=== PATIENT | female | born 1935 | race Caucasian/White ===

== ENCOUNTER → 2017-01-06 | Outpatient (CLI) | payer MEDICARE ==
--- NOTE | 2017-01-06 12:34 | XR ---
EXAMINATION TYPE: XR toes LT DATE OF EXAM: 01/06/2017 11:36 AM COMPARISON: NONE HISTORY: wound L great toe, stepped on something several months ago TECHNIQUE: 3 views of the left great toe are submitted. FINDINGS: No evidence for fracture or dislocation. Joint spaces are within normal limits for the daljit ent's age group. No evidence for radiopaque foreign body. No bony destructive process to suggest oste omyelitis. IMPRESSION: Negative study
== END | disposition home or self-care (01) ==
LOC: RADXRMAIN 11:19
PROVIDERS: ATTEND Family Medicine
DX: M79.675 Pain in left toe(s) (principal)

== ENCOUNTER 2017-01-22 12:12 | Emergency (ER) | payer MEDICARE ==
[2017-01-22] MEDS ORDERED: ONDANSETRON 4 MG/2 ML VIAL IVP STA (12:29)
[2017-01-22] MEDS ORDERED: DIPH,PERTUS(ACELL)TETVAC-LF 0.5 ML VIAL IM ONE (12:29)
[2017-01-22] MEDS ORDERED: SODIUM CHLORIDE 0.9% 1,000 ML IV ONE (12:29)
[2017-01-22] MEDS ORDERED: HYDROmorphone 1 MG/ML 1 ML SYRINGE IVP STA (12:29)
--- NOTE | 2017-01-22 12:35 | ED ---
General Adult HPI - General Chief complaint: Fall Stated complaint: Fall Time Seen by Provider: 01/22/17 12:18 Source: patient, EMS, RN notes reviewed, old records reviewed Mode of arrival: EMS Limitations: no limitations - History of Present Illness Initial comments: Chief complaint and history of present illness this is an 82-year-old female reports that while in her kitchen she just turned lost her balance and fell not she complains of pain to the proximal right femur or hip area. The patient arrived via EMS with the injury stabilized as well as possible and minimizing her discomfort. Around emergency room the patient had an IV started she was given 1 mg of Dilaudid. Patient has a 1 cm laceration to her right eyebrow. Denies any loss of consciousness. No seizure activity no nausea no vomiting. No complaint of headache or neck pain. Trauma examination done upon arrival to emergency room. Other than the laceration to the right eyebrow the patient has complaint of pain to the proximal right femur. - Related Data Home Medications Medication Instructions Recorded Confirmed Latanoprost 1 drop BOTH EYES HS 02/02/15 01/22/17 Pantoprazole Sodium [Protonix] 40 mg PO DAILY 02/02/15 01/22/17 Aspirin EC [Ecotrin Low Dose] 81 mg PO DAILY 01/22/17 01/22/17 Atenolol 25 mg PO BID 01/22/17 01/22/17 Atorvastatin [Lipitor] 10 mg PO HS 01/22/17 01/22/17 Calcium Carbonate [Calcium] 1,200 mg PO DAILY 01/22/17 01/22/17 Glucosamine/Chondro Rincon A 3 tab PO QAM 01/22/17 01/22/17 [Glucosamine-Chondroitin Tab] HYDROcodone/APAP 5-325MG [[place] 1 tab PO Q8H PRN 01/22/17 01/22/17 5-325] Timolol 0.5% Ophth Soln [Timoptic 1 drop BOTH EYES DAILY 01/22/17 01/22/17 0.5% Ophth Soln] Tolterodine Tartrate [Detrol LA] 4 mg PO HS 01/22/17 01/22/17 Vitamin E (Dl,Tocopheryl Acet) 400 unit PO DAILY 01/22/17 01/22/17 [Vitamin E] amLODIPine BESYLATE/BENAZEPRIL 1 cap PO DAILY 01/22/17 01/22/17 [Lotrel 5-40 mg Capsule] Previous Rx's Medication Instructions Recorded sitaGLIPtin [Januvia] 50 mg PO DAILY #30 tab 02/05/15 Allergies Allergy/AdvReac Type Severity Reaction Status Date / Time No Known Allergies Allergy Verified 01/22/17 13:50 Review of Systems ROS Statement: Those systems with pertinent positive or pertinent negative responses have been documented in the HPI. Review of systems no headache or visual acuity changes she does have a small laceration to right eyebrow. No neck pain no jaw pain no chest pain shortness breath no upper extremity pain left leg normal. Pain and swelling proximal right femur area. Neurovascular status both feet intact at this time. All systems reviewed. Past medical problems diabetes, hypertension, arthritis, history of blood clots. Patient's surgeries include left hip surgery in 2014 and right hip surgery reportedly in 2002, wide graft done to improve blood flow to the legs. Ex-smoker, occasional alcohol use. Family history breast and stomach cancer. ROS Other: All systems not noted in ROS Statement are negative. Past Medical History Past Medical History: Diabetes Mellitus, Hypertension Additional Past Medical History / Comment(s): arthritis, blood clot after y graft had to go back into OR to remove it History of Any Multi-Drug Resistant Organisms: None Reported Past Surgical History: Hysterectomy, Orthopedic Surgery, Tonsillectomy Additional Past Surgical History / Comment(s): right hip sx 2002, "had no blood going into my legs had a y-graft to get blood to my legs"blood vessels so small poor circulation Past Anesthesia/Blood Transfusion Reactions: No Reported Reaction Past Psychological History: No Psychological Hx Reported Smoking Status: Former smoker Past Alcohol Use History: Occasional Past Drug Use History: None Reported - Past Family History Father Additional Family Medical History / Comment(s): early killed in [place] Mother Additional Family Medical History / Comment(s): breast and stomach cancer Sister(s) Additional Family Medical History / Comment(s): cancer-female Brother(s) Additional Family Medical History / Comment(s): brother heart attack General Exam - General Exam Comments Initial Comments: General: The patient is awake and alert, playing of pain to the proximal right femur area. Vital signs per nurse's note. Eye: Pupils are equal, round and reactive to light, extra-ocular movements are intact ; there is normal conjunctiva bilaterally. No signs of icterus. Ears, nose, mouth and throat: There are moist mucous membranes and no oral lesions. Neck: The neck is supple, there is no tenderness , full range of motion of neck. No complaint of headache. Cardiovascular: There is a regular rate and rhythm. No murmur, rub or gallop is appreciated. Respiratory: Lungs are clear to auscultation, respirations are non-labored, breath sounds are equal. No wheezes, stridor, rales, or rhonchi. Gastrointestinal: Soft, non-distended, non-tender abdomen without masses or organomegaly noted. There is no rebound or guarding present. No CVA tenderness. Bowel sounds are unremarkable. Back: There is no tenderness to palpation in the midline. No back pain. Musculoskeletal: Pain swelling decreased range of motion from proximal right femur. Neurological: CN II-XII intact, There are no obvious motor or sensory deficits. Skin: Skin is warm and dry and no rashes or lesions are noted. Psychiatric: Cooperative, appropriate mood & affect, normal judgment. Limitations: no limitations Course Vital Signs 01/22/17 01/22/17 01/22/17 12:26 13:05 13:10 Temperature 97.2 F L Pulse Rate 60 55 L 53 L Respiratory 20 Rate Blood Pressure 202/87 211/88 O2 Sat by Pulse 96 Oximetry 01/22/17 01/22/17 01/22/17 14:01 14:44 14:47 Temperature Pulse Rate 50 L Respiratory 16 Rate Blood Pressure 176/95 166/62 O2 Sat by Pulse 98 Oximetry Procedures - Procedures Initial comment: Procedure; using sterile technique a 1 1/2 cm laceration was repaired. 1% Xylocaine was used to numb the area cleaned well. Hemostasis obtained. No foreign body noted. Wound edges approximated with 2 simple 5-0 nylon. Sutures to be removed in [address] Doss Medical Decision Making - Medical Decision Making Medical decision-making. Patient's white count is 9.9 hemoglobin 11 hematocrit 35. INR is 1.2 with a potassium 4.5 with BUN 27 creatinine 0.7 and GFR greater than 60. Glucose 144. x-ray of the right hip shows right femoral fracture through the proximal diaphysis of the right femur .as read by Dr. Brown The patient was seen in emergency room by Dr. Currie. Patient be admitted to his service with medical consultation. - Lab Data Result diagrams: 01/22/17 13:09 01/22/17 13:09 Lab Results 01/22/17 01/22/17 01/22/17 Range/Units 13:09 13:09 13:09 WBC 9.9 (3.8-10.6) k/uL RBC 4.15 (3.80-5.40) m/uL Hgb 11.3 L (11.4-16.0) gm/dL Hct 35.4 (34.0-46.0) % MCV 85.3 (80.0-100.0) fL MCH 27.3 (25.0-35.0) pg MCHC 32.0 (31.0-37.0) g/dL RDW 14.0 (11.5-15.5) % Plt Count 175 (150-450) k/uL Neutrophils % 83 % Lymphocytes % 10 % Monocytes % 4 % Eosinophils % 2 % Basophils % 0 % Neutrophils # 8.2 H (1.3-7.7) k/uL Lymphocytes # 1.0 (1.0-4.8) k/uL Monocytes # 0.4 (0-1.0) k/uL Eosinophils # 0.2 (0-0.7) k/uL Basophils # 0.0 (0-0.2) k/uL Hypochromasia Slight PT 11.7 (9.0-12.0) sec INR 1.2 (<1.1) Sodium 137 (137-145) mmol/L Potassium 4.5 (3.5-5.1) mmol/L Chloride 105 (98-107) mmol/L Carbon Dioxide 22 (22-30) mmol/L Anion Gap 10 mmol/L BUN 27 H (7-17) mg/dL Creatinine 0.70 (0.52-1.04) mg/dL Est GFR (MDRD) Af Amer >60 (>60 ml/min/1.73 sqM) Est GFR (MDRD) Non-Af >60 (>60 ml/min/1.73 sqM) Glucose 144 H (74-99) mg/dL Calcium 9.5 (8.4-10.2) mg/dL Total Bilirubin 0.4 (0.2-1.3) mg/dL AST 38 H (14-36) U/L ALT 44 (9-52) U/L Alkaline Phosphatase 86 (38-126) U/L Total Protein 6.3 (6.3-8.2) g/dL Albumin 3.8 (3.5-5.0) g/dL Disposition Clinical Impression: Right femoral shaft fracture Disposition: ADMITTED IP TO THIS HOSP Condition: Serious Referrals: Javi Rodriguez MD [Primary Care Provider] - 1-2 days
--- NOTE | 2017-01-22 13:07 | XR ---
Right hip HISTORY: Trauma and pain Single frontal view of the right hip Correlation to pelvis 02 February 2015 Proximal diaphysis of the right femur shows a fracture with resulting varus deformity, fracture appea rs comminuted. No evident dislocation. Patient's hip prosthesis remains in place. IMPRESSION: Right femoral fracture
--- NOTE | 2017-01-22 13:09 | XR ---
AP pelvis HISTORY: Trauma and pain frontal view of the pelvis submitted on 2 images. Correlation to right hip same date Proximal diaphyseal right femoral fracture is present. Patient shows bilateral hip prosthetic fractur es. No evident dislocation. There are vascular calcifications. IMPRESSION: Proximal right diaphyseal femoral fracture
[2017-01-22] MEDS ORDERED: cloNIDine HCL 0.2 MG TAB PO STA (13:11)
[2017-01-22 13:22] LABS: Basophils % (A) 0 %; CH 27.1; CHCM 31.9; Eosinophils # (A) 0.2 k/uL (0-0.7); Eosinophils % (A) 2 %; HCT 35.4 % (34.0-46.0); HDW 2.91; HGB 11.3 gm/dL (11.4-16.0); Hypochromasia Slight; Luc # (Auto) 0.11; Luc % (Auto) 1; Lymphocytes % (A) 10 %; MCH 27.3 pg (25.0-35.0); MCV 85.3 fL (80.0-100.0); Mean Platelet Volume 9.2; Monocytes # (A) 0.4 k/uL (0-1.0); Monocytes % (A) 4 %; Neutrophils # (A) 8.2 k/uL (1.3-7.7); Neutrophils % (A) 83 %; RBC 4.15 m/uL (3.80-5.40); WBC 9.9 k/uL (3.8-10.6); WBC (Perox) 10.58
[2017-01-22 13:33] LABS: INR 1.2 (<1.1); Prothrombin Time 11.7 sec (9.0-12.0)
[2017-01-22 13:39] LABS: ALT 44 U/L (9-52); AST 38 U/L (14-36); Alkaline Phosphatase 86 U/L (38-126); Anion Gap 10 mmol/L; Blood Urea Nitrogen 27 mg/dL (7-17); Calcium 9.5 mg/dL (8.4-10.2); Carbon Dioxide 22 mmol/L (22-30); Chloride 105 mmol/L (98-107); Glucose 144 mg/dL (74-99); Non-African American GFR(MDRD) >60 (>60 ml/min/1.73 sqM); Potassium 4.5 mmol/L (3.5-5.1); Sodium 137 mmol/L (137-145); Total Bilirubin 0.4 mg/dL (0.2-1.3); Total Protein 6.3 g/dL (6.3-8.2)
--- NOTE | 2017-01-22 14:59 | P.HPOR ---
History of Present Illness H&P Date: 01/22/17 Chief Complaint: Right hip periprosthetic fracture status post fall Patient is very pleasant 82-year-old female who is well-known to us service who is seen and examined in the emergency department for further evaluation for a right periprosthetic femur fracture status post fall today. Patient states she is unsure exactly why she fell. Shee did hit the right side of her head at the time of the fall but denies loss of consciousness. She is known have previously undergone bilateral total hip arthroplasties both performed by Dr. Spring. She states her right total hip was performed in 2002 and her left total hip was performed in 2015. She presented to the emergency department for further evaluation. Since the fall she has had significant pain of the right leg. She is unable to ambulate. She states she takes aspirin 81 mg daily at home. She does have past medical history including diabetes and hyperlipidemia. She denies any ALLERGIES to medication. She states her primary care provider is Dr. Rodriguez. Past Medical History Past Medical History: Diabetes Mellitus, Hypertension Additional Past Medical History / Comment(s): arthritis, blood clot after y graft had to go back into OR to remove it History of Any Multi-Drug Resistant Organisms: None Reported Past Surgical History: Hysterectomy, Orthopedic Surgery, Tonsillectomy Additional Past Surgical History / Comment(s): right hip sx 2002, "had no blood going into my legs had a y-graft to get blood to my legs"blood vessels so small poor circulation Past Anesthesia/Blood Transfusion Reactions: No Reported Reaction Past Psychological History: No Psychological Hx Reported Smoking Status: Former smoker Past Alcohol Use History: Occasional Past Drug Use History: None Reported - Past Family History Father Additional Family Medical History / Comment(s): early killed in [place] [employer] Mother Additional Family Medical History / Comment(s): breast and stomach cancer Sister(s) Additional Family Medical History / Comment(s): cancer-female Brother(s) Additional Family Medical History / Comment(s): brother heart attack Medications and Allergies Home Medications Medication Instructions Recorded Confirmed Type Latanoprost 1 drop BOTH EYES HS 02/02/15 01/22/17 History Pantoprazole Sodium [Protonix] 40 mg PO DAILY 02/02/15 01/22/17 History Aspirin EC [Ecotrin Low Dose] 81 mg PO DAILY 01/22/17 01/22/17 History Atenolol 25 mg PO BID 01/22/17 01/22/17 History Atorvastatin [Lipitor] 10 mg PO HS 01/22/17 01/22/17 History Calcium Carbonate [Calcium] 1,200 mg PO DAILY 01/22/17 01/22/17 History Glucosamine/Chondro Rincon A 3 tab PO QAM 01/22/17 01/22/17 History [Glucosamine-Chondroitin Tab] HYDROcodone/APAP 5-325MG [[place] 1 tab PO Q8H PRN 01/22/17 01/22/17 History 5-325] Timolol 0.5% Ophth Soln [Timoptic 1 drop BOTH EYES DAILY 01/22/17 01/22/17 History 0.5% Ophth Soln] Tolterodine Tartrate [Detrol LA] 4 mg PO HS 01/22/17 01/22/17 History Vitamin E (Dl,Tocopheryl Acet) 400 unit PO DAILY 01/22/17 01/22/17 History [Vitamin E] amLODIPine BESYLATE/BENAZEPRIL 1 cap PO DAILY 01/22/17 01/22/17 History [Lotrel 5-40 mg Capsule] Allergies Allergy/AdvReac Type Severity Reaction Status Date / Time No Known Allergies Allergy Verified 01/22/17 13:50 Physical Examination Physical Exam: Patient is awake, alert, and oriented 3 Vital signs stable Good chest excursion with deep inspiration and expiration Evidence of large bruising over the right side of the face and forehead Evidence of a small laceration by the right lateral eyebrow Right lower extremity internally rotated Significant in the palpation over the right femur Left lower extremity leg length appears to be appropriate Extensor hallucis longus, plantarflexion, and dorsiflexion positive sustained bilateral lower extremities Peterson catheter intact Results Studies: X-ray of the right hip and pelvis: Proximal diaphysis right femur fracture resulting in varus deformity, the fracture appears comminuted, no evidence of hip dislocation; right hip prosthesis remains in place; left hip total arthroplasty appears to be in good alignment good position with no evidence of fracture or dislocation - Labs Labs: Abnormal Lab Results - Last 24 Hours (Table) 01/22/17 01/22/17 Range/Units 13:09 13:09 Hgb 11.3 L (11.4-16.0) gm/dL Neutrophils # 8.2 H (1.3-7.7) k/uL BUN 27 H (7-17) mg/dL Glucose 144 H (74-99) mg/dL AST 38 H (14-36) U/L H & H 01/22/17 Range/Units 13:09 Hgb 11.3 L (11.4-16.0) gm/dL Hct 35.4 (34.0-46.0) % Coagulation 01/22/17 Range/Units 13:09 INR 1.2 (<1.1) Result Diagrams: 01/22/17 13:09 01/22/17 13:09 Assessment and Plan (1) Periprosthetic fracture around internal prosthetic hip joint Status: Acute (2) Hyperlipidemia Status: Acute (3) Fall Status: Acute (4) Closed left hip fracture Status: Acute (5) Diabetes Status: Acute (6) History of total replacement of both hip joints Status: Acute Plan: Assessment: Periprosthetic right femur fracture status post fall Diabetes Hyperlipidemia History of bilateral total hip arthroplasty Plan: 1. Following the patient's recent fall and right periprosthetic femur fracture , patient will need to undergo surgical intervention for her fracture. She is to remain on bed rest. Peterson catheter will remain intact. Plan to continue with pain control. Medicine will be consulted to further evaluate the patient and clear her for surgical intervention. We will also plan to have medicine control her DVT prophylaxis with anticoagulation therapy with bridging anticoagulation regimen prior to surgical intervention. At this time, we'll plan to contact Dr. Spring and we'll plan to try to set for his a surgical plan. It was discussed in detail with the patient that her surgery may not be able to be performed until early next week until Dr. Spring or another orthopedic surgeon from our practice is available to perform her surgery. 2. Medicine to be consulted for surgical clearance and to control VT prophylaxis with anticoagulation therapy with a bridging therapy prior to surgical intervention 3. Continue pain control 4. Patient to remain on bed rest 5. We will continue to follow patient closely 6. Patient was seen and examined by Dr. Hernandez Currie and myself. He agrees with this plan Time with Patient: Less than 30
[2017-01-22] MEDS ORDERED: ONDANSETRON 4 MG/2 ML VIAL IVP PRN (15:16)
[2017-01-22] MEDS ORDERED: HYDROmorphone 1 MG/ML 1 ML SYRINGE IV PRN (15:16)
[2017-01-22] MEDS ORDERED: NALOXONE 0.4 MG/ML 1 ML VIAL IV PRN (15:16)
[2017-01-22] MEDS ORDERED: SODIUM CHLORIDE 0.9% 1,000 ML IV SCH (15:30)
[2017-01-22 17:59] VITALS: BP 156/64; PULSE 43; RESP 18; TEMP 98
[2017-01-22] MEDS ORDERED: ATORVASTATIN 10 MG TAB PO SCH (21:00)
[2017-01-22] MEDS ORDERED: ATENOLOL 25 MG TAB PO SCH (21:00)
[2017-01-22] MEDS ORDERED: LATANOPROST 0.005% OPHTH DROPS 2.5 ML BTL BOTH EYES SCH (21:00)
[2017-01-22] MEDS ORDERED: OXYBUTYNIN XL 5 MG TAB.ER.24 PO SCH (21:00)
[2017-01-23] MEDS ORDERED: GLUCOSAMINE PO SCH (09:00)
[2017-01-23] MEDS ORDERED: CHONDRO SU A PO SCH (09:00)
[2017-01-23] MEDS ORDERED: LINAGLIPTIN 5 MG TABLET PO SCH (09:00)
[2017-01-23] MEDS ORDERED: LISINOPRIL 20 MG TAB PO SCH (09:00)
[2017-01-23] MEDS ORDERED: amLODIPine 5 MG TAB PO SCH (09:00)
[2017-01-23] MEDS ORDERED: PANTOPRAZOLE 40 MG/10 ML VIAL IV SCH (09:00)
[2017-01-23] MEDS ORDERED: TIMOLOL 0.5% OPHTH DROPS 5 ML BTL BOTH EYES SCH (09:00)
[2017-01-23] MEDS ORDERED: VITAMIN E (DL,TOCOPHERYL ACET) 400 UNIT CAP PO SCH (12:00)
[2017-01-23] MEDS ORDERED: CALCIUM CARBONATE 500 MG CHEWABLE PO SCH (12:00)
== END 2017-01-22 18:10 | disposition short-term general hospital (02) ==
LOC: EC 12:12 → UNDOADMIN 15:16 → 5MS5E 15:16 → EC 18:10
DX: S72.301A Unspecified fracture of shaft of right femur, initial encounter for closed fracture (principal); S01.111A Laceration without foreign body of right eyelid and periocular area, initial encounter; I10 Essential (primary) hypertension; M19.90 Unspecified osteoarthritis, unspecified site; E11.9 Type 2 diabetes mellitus without complications; Z23 Encounter for immunization; Z87.891 Personal history of nicotine dependence; Z79.82 Long term (current) use of aspirin; Z79.899 Other long term (current) drug therapy; W18.30XA Fall on same level, unspecified, initial encounter; Y92.000 Kitchen of unspecified non-institutional (private) residence as the place of occurrence of the external cause
CPT/HCPCS: 99285; 12011; 96374; 96375; 96376; 96361 ×4; 36415; 80053; 85025; 85610; 72170; 73501; 90715; J2405; J1170

== ENCOUNTER → 2017-05-17 | Outpatient (CLI) | payer MEDICARE | END | disposition home or self-care (01) | LOC: LABWHC1 10:18 | PROVIDERS: ATTEND Internal Medicine Interventional Cardiology | DX: E03.9 Hypothyroidism, unspecified (principal) | CPT/HCPCS: 36415; 84439; 84443 ==

== ENCOUNTER → 2017-10-24 | Outpatient (CLI) | payer MEDICARE ==
[2017-10-24 14:42] LABS: Anion Gap 10 mmol/L; Blood Urea Nitrogen 30 mg/dL (7-17); Calcium 10.4 mg/dL (8.4-10.2); Carbon Dioxide 26 mmol/L (22-30); Chloride 105 mmol/L (98-107); Glucose 88 mg/dL (74-99); Potassium 5.1 mmol/L (3.5-5.1); Sodium 141 mmol/L (137-145)
== END | disposition home or self-care (01) ==
LOC: LABWHC1 13:41
PROVIDERS: ATTEND Internal Medicine Interventional Cardiology
DX: I10 Essential (primary) hypertension (principal)
CPT/HCPCS: 36415; 80048

== ENCOUNTER 2017-11-10 13:01 | Emergency (ER) | payer MEDICARE ==
[2017-11-10] MEDS ORDERED: SODIUM CHLORIDE 0.9% 1,000 ML IV STA (14:05)
[2017-11-10] MEDS ORDERED: ONDANSETRON 4 MG/2 ML VIAL IVP STA (14:05)
[2017-11-10] MEDS ORDERED: RX INFO: IV CONTRAST WAS GIVEN 1 EACH MISC MISCELLANE PRN (14:05)
[2017-11-10] MEDS ORDERED: hydrALAZINE HCL 20 MG/ML 1 ML VIAL IVP STA (14:10)
--- NOTE | 2017-11-10 14:34 | ED ---
General Adult HPI - General Stated complaint: Nausea & vomiting Time Seen by Provider: 11/10/17 13:57 Source: patient, EMS, RN notes reviewed Mode of arrival: EMS Limitations: no limitations - History of Present Illness Initial comments: 81-year-old female presents emergency Department with chief complaint of nausea vomiting abdominal discomfort. Patient states symptoms started earlier this morning. Patient states she did take all of her morning medications. She complains of diffuse abdominal pain states that she started having back pain a little while ago. Patient denies any chest pain, shortness breath, headache or dizziness. Patient states she did take her blood pressure medication though she is hypertensive. Patient denies dysuria or hematuria. Patient reports no fevers no chills she's had no prior abdominal surgeries other than a hysterectomy. - Related Data Home Medications Medication Instructions Recorded Confirmed Latanoprost 1 drop BOTH EYES HS 02/02/15 11/10/17 Pantoprazole Sodium [Protonix] 40 mg PO DAILY 02/02/15 11/10/17 Atorvastatin [Lipitor] 10 mg PO HS 01/22/17 11/10/17 HYDROcodone/APAP 5-325MG [[place] 1 tab PO BID PRN 01/22/17 11/10/17 5-325] Timolol 0.5% Ophth Soln [Timoptic 1 drop BOTH EYES DAILY 01/22/17 11/10/17 0.5% Ophth Soln] Tolterodine Tartrate [Detrol LA] 4 mg PO HS 01/22/17 11/10/17 amLODIPine BESYLATE/BENAZEPRIL 1 cap PO DAILY 01/22/17 11/10/17 [Lotrel 5-40 mg Capsule] Ibuprofen [Motrin] 800 mg PO TID PRN 11/10/17 11/10/17 Multivitamins, Thera [Multivitamin 1 tab PO DAILY 11/10/17 11/10/17 (formulary)] sitaGLIPtin PHOS/metFORMIN HCL 1 tab PO BID 11/10/17 11/10/17 [Janumet 50-1,000 mg Tablet] Allergies Allergy/AdvReac Type Severity Reaction Status Date / Time No Known Allergies Allergy Verified 11/10/17 13:50 Review of Systems ROS Statement: Those systems with pertinent positive or pertinent negative responses have been documented in the HPI. ROS Other: All systems not noted in ROS Statement are negative. Past Medical History Past Medical History: Diabetes Mellitus, Hypertension Additional Past Medical History / Comment(s): arthritis, blood clot after y graft had to go back into OR to remove it History of Any Multi-Drug Resistant Organisms: None Reported Past Surgical History: Hysterectomy, Orthopedic Surgery, Tonsillectomy Additional Past Surgical History / Comment(s): right hip sx 2002, "had no blood going into my legs had a y-graft to get blood to my legs"blood vessels so small poor circulation Past Anesthesia/Blood Transfusion Reactions: No Reported Reaction Past Psychological History: No Psychological Hx Reported Smoking Status: Former smoker Past Alcohol Use History: Occasional Past Drug Use History: None Reported - Past Family History Father Additional Family Medical History / Comment(s): early killed [place] Mother Additional Family Medical History / Comment(s): breast and stomach cancer Sister(s) Additional Family Medical History / Comment(s): cancer-female Brother(s) Additional Family Medical History / Comment(s): brother heart attack General Exam General appearance: alert, in no apparent distress Head exam: Present: atraumatic, normocephalic, normal inspection Eye exam: Present: normal appearance, PERRL, EOMI. Absent: scleral icterus, conjunctival injection, periorbital swelling Neck exam: Present: normal inspection. Absent: tenderness, meningismus, lymphadenopathy Respiratory exam: Present: normal lung sounds bilaterally. Absent: respiratory distress, wheezes, rales, rhonchi, stridor Cardiovascular Exam: Present: regular rate, normal rhythm, normal heart sounds. Absent: systolic murmur, diastolic murmur, rubs, gallop, clicks GI/Abdominal exam: Present: soft, tenderness (Mild diffuse), normal bowel sounds. Absent: distended, guarding, rebound, rigid Back exam: Absent: CVA tenderness (R), CVA tenderness (L) Course Vital Signs 11/10/17 11/10/17 11/10/17 14:51 15:45 16:55 Pulse Rate 69 90 60 Respiratory 20 20 20 Rate Blood Pressure 211/129 158/109 197/93 O2 Sat by Pulse 96 97 96 Oximetry EKG Findings - EKG Comments: EKG Findings:: EKG performed at 16:37 sinus rhythm with short ME rate is 61 ME 102 QRS 78 QT/QTC 440/442 Medical Decision Making - Medical Decision Making 81-year-old female presented for abdominal pain. Patient is found to have mid SMA thrombus with concern for ischemic bowel. There is also noted infarct of the liver. Patient with this case was discussed with Dr. Teodoro Israel who recommended the patient be transferred. I did discuss case with Dr. Jackson who accepts transfer Bijancamilobartolome Shaw - Lab Data Result diagrams: 11/10/17 14:39 11/10/17 14:39 Lab Results 11/10/17 11/10/17 11/10/17 Range/Units 13:13 14:39 14:39 WBC 16.0 H (3.8-10.6) k/uL RBC 4.81 (3.80-5.40) m/uL Hgb 12.1 (11.4-16.0) gm/dL Hct 37.9 (34.0-46.0) % MCV 78.6 L (80.0-100.0) fL MCH 25.1 (25.0-35.0) pg MCHC 31.9 (31.0-37.0) g/dL RDW 15.2 (11.5-15.5) % Plt Count 225 (150-450) k/uL Neutrophils % 87 % Lymphocytes % 7 % Monocytes % 4 % Eosinophils % 2 % Basophils % 0 % Neutrophils # 13.9 H (1.3-7.7) k/uL Lymphocytes # 1.1 (1.0-4.8) k/uL Monocytes # 0.6 (0-1.0) k/uL Eosinophils # 0.3 (0-0.7) k/uL Basophils # 0.1 (0-0.2) k/uL PT (9.0-12.0) sec INR (<1.2) APTT (22.0-30.0) sec Sodium 140 (137-145) mmol/L Potassium 4.8 (3.5-5.1) mmol/L Chloride 101 (98-107) mmol/L Carbon Dioxide 24 (22-30) mmol/L Anion Gap 15 mmol/L BUN 34 H (7-17) mg/dL Creatinine 1.00 (0.52-1.04) mg/dL Est GFR (CKD-EPI)AfAm 62 (>60 ml/min/1.73 sqM) Est GFR (CKD-EPI)NonAf 53 (>60 ml/min/1.73 sqM) Glucose 234 H (74-99) mg/dL Plasma Lactic Acid Gualberto (0.7-2.0) mmol/L Calcium 10.8 H (8.4-10.2) mg/dL Total Bilirubin 0.7 (0.2-1.3) mg/dL AST 112 H (14-36) U/L ALT 44 (9-52) U/L Alkaline Phosphatase 116 (38-126) U/L Total Creatine Kinase (30-135) U/L CK-MB (CK-2) (0.0-2.4) ng/mL CK-MB (CK-2) Rel Index Troponin I (0.000-0.034) ng/mL Total Protein 8.0 (6.3-8.2) g/dL Albumin 4.9 (3.5-5.0) g/dL Amylase 267 H (30-110) U/L Lipase 326 H (23-300) U/L Urine Color Light Yellow Urine Appearance Clear (Clear) Urine pH 7.0 (5.0-8.0) Ur Specific [place] 1.010 (1.001-1.035) Urine Protein Trace H (Negative) Urine Glucose (UA) Trace H (Negative) Urine Ketones Negative (Negative) Urine Blood Negative (Negative) Urine Nitrite Negative (Negative) Urine Bilirubin Negative (Negative) Urine Urobilinogen <2.0 (<2.0) mg/dL Ur Leukocyte Esterase Negative (Negative) 11/10/17 11/10/17 11/10/17 Range/Units 14:39 14:39 14:39 WBC (3.8-10.6) k/uL RBC (3.80-5.40) m/uL Hgb (11.4-16.0) gm/dL Hct (34.0-46.0) % MCV (80.0-100.0) fL MCH (25.0-35.0) pg MCHC (31.0-37.0) g/dL RDW (11.5-15.5) % Plt Count (150-450) k/uL Neutrophils % % Lymphocytes % % Monocytes % % Eosinophils % % Basophils % % Neutrophils # (1.3-7.7) k/uL Lymphocytes # (1.0-4.8) k/uL Monocytes # (0-1.0) k/uL Eosinophils # (0-0.7) k/uL Basophils # (0-0.2) k/uL PT 10.5 (9.0-12.0) sec INR 1.1 (<1.2) APTT 19.2 L (22.0-30.0) sec Sodium (137-145) mmol/L Potassium (3.5-5.1) mmol/L Chloride (98-107) mmol/L Carbon Dioxide (22-30) mmol/L Anion Gap mmol/L BUN (7-17) mg/dL Creatinine (0.52-1.04) mg/dL Est GFR (CKD-EPI)AfAm (>60 ml/min/1.73 sqM) Est GFR (CKD-EPI)NonAf (>60 ml/min/1.73 sqM) Glucose (74-99) mg/dL Plasma Lactic Acid [place]berto 2.5 H* (0.7-2.0) mmol/L Calcium (8.4-10.2) mg/dL Total Bilirubin (0.2-1.3) mg/dL AST (14-36) U/L ALT (9-52) U/L Alkaline Phosphatase (38-126) U/L Total Creatine Kinase 115 (30-135) U/L CK-MB (CK-2) 3.6 H* (0.0-2.4) ng/mL CK-MB (CK-2) Rel Index 3.1 Troponin I 0.097 H* (0.000-0.034) ng/mL Total Protein (6.3-8.2) g/dL Albumin (3.5-5.0) g/dL Amylase (30-110) U/L Lipase (23-300) U/L Urine Color Urine Appearance (Clear) Urine pH (5.0-8.0) Ur Specific [place] (1.001-1.035) Urine Protein (Negative) Urine Glucose (UA) (Negative) Urine Ketones (Negative) Urine Blood (Negative) Urine Nitrite (Negative) Urine Bilirubin (Negative) Urine Urobilinogen (<2.0) mg/dL Ur Leukocyte Esterase (Negative) Disposition Clinical Impression: Ischemic bowel disease, Superior mesenteric artery thrombosis, Hypertension, Abdominal pain, Hepatic infarction, Pancreatitis Disposition: OTHER INSTITUTION NOT DEFINED Condition: Stable Referrals: Javi Rodriguez MD [Primary Care Provider] - 1-2 days Time of Disposition: 17:05 - Out of Hospital Transfer - Req. Specs Out of Hospital Transfer - Requested Specifics: Other Emergency Center
[2017-11-10 14:47] LABS: Appearance,Urine Clear (Clear); Bilirubin,Urine Negative (Negative); Blood,Urine Negative (Negative); Color,Urine Light Yellow; Glucose,Urine (UA) Trace (Negative); Ketones,Urine Negative (Negative); Leukocyte Esterase,Urine Negative (Negative); Nitrite,Urine Negative (Negative); Protein,Urine Trace (Negative); Urobilinogen,Urine <2.0 mg/dL (<2.0)
[2017-11-10] MEDS ORDERED: MORPHINE SULFATE 4 MG/ML SYRINGE IVP STA ×2 (14:56→17:01)
[2017-11-10 14:59] LABS: Basophils # (A) 0.1 k/uL (0-0.2); Basophils % (A) 0 %; Eosinophils # (A) 0.3 k/uL (0-0.7); Eosinophils % (A) 2 %; HCT 37.9 % (34.0-46.0); HGB 12.1 gm/dL (11.4-16.0); Lymphocytes # (A) 1.1 k/uL (1.0-4.8); Lymphocytes % (A) 7 %; MCH 25.1 pg (25.0-35.0); MCHC 31.9 g/dL (31.0-37.0); MCV 78.6 fL (80.0-100.0); Monocytes # (A) 0.6 k/uL (0-1.0); Monocytes % (A) 4 %; Neutrophils # (A) 13.9 k/uL (1.3-7.7); Neutrophils % (A) 87 %; Platelet Count 225 k/uL (150-450); RBC 4.81 m/uL (3.80-5.40); RDW 15.2 % (11.5-15.5)
[2017-11-10 15:06] LABS: INR 1.1 (<1.2); Prothrombin Time 10.5 sec (9.0-12.0)
[2017-11-10 15:07] LABS: Albumin 4.9 g/dL (3.5-5.0); Calcium 10.8 mg/dL (8.4-10.2); Potassium 4.8 mmol/L (3.5-5.1); Total Bilirubin 0.7 mg/dL (0.2-1.3)
[2017-11-10 15:18] LABS: Partial Thromboplastin Time 19.2 sec (22.0-30.0)
--- NOTE | 2017-11-10 16:15 | CT ---
EXAMINATION TYPE: CT abdomen pelvis w con DATE OF EXAM: 11/10/2017 COMPARISON: NONE HISTORY: 81-year-old female complains of bilateral upper quadrant pain, nausea, and vomiting. TECHNIQUE: Contiguous axial scanning of the abdomen and pelvis following administration of 80 ml Visi paque 320 IV contrast. Delayed images through the kidneys and coronal/sagittal reconstructions perfo rmed. CT DLP: 828 mGycm Automated exposure control for dose reduction was used. FINDINGS: Heart is normal size without pericardial effusion. Dense mitral annular calcifications are present. L kash bases clear without pleural effusion. There is a moderate-sized hernia. Mild diffuse fold thickening of the stomach could be secondary to i nflammation. There are a number of peripherally oriented areas of hypodensity within the liver measuring up to 4.4 cm involving both lobes. Vessels seen to course through these regions. Portal venous system appears patent. Gallbladder shows no abnormal distention. Numerous layering calculi are present. Bile duct normal colt iber given patient's age. Left adrenal nodule measures 2.2 x 1.4 cm. Right adrenal gland within normal limits. Symmetric uptake and excretion of contrast from the kidneys. Bilateral perinephric stranding probably senescent change. There is a 1.27 m cyst in the upper pole of right kidney. Suggestion of mild uroth elial enhancement of the right renal collecting system and right ureter. 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 Spleen and pancreas shows no gross abnormality. Probable splenule near the left adrenal gland. Distended mid and lower abdominal small bowel loops measuring up to 2.6 cm. These are fluid filled lo ops. There is central filling defects within the mid SMA, refer to axial image 23 through 28 and coronal i mage 33 for some international sales representative images. Normal appendix. No transition point seen. Moderate to large stool in the right hemicolon with sigmoid diverticulosis but no pericolonic inflamm atory change. No pneumatosis or free air seen. Prominent urinary distention of the bladder which measures up to 10.1 cm wide filling the pelvis from side to side. Prominent artifact from the patient's bilateral hip replacements limits visualization of the pelvis. No obvious free fluid in the pelvis or lymphadenopathy seen. Bones: Bilateral hip replacements. Degenerative changes throughout the lumbar spine with a degenerate d levoconvex scoliosis and multilevel spondylolisthesis. No osseous destructive process seen. IMPRESSION: 1. RECOMMEND CLINICAL AND SURGICAL EVALUATION TO EXCLUDE ISCHEMIC BOWEL GIVEN FLUID-FILLED BORDERLINE DISTENDED SMALL BOWEL LOOPS THROUGHOUT THE MID AND LOWER ABDOMEN AND THROMBUS IN THE MID SMA. NO PNE UMATOSIS OR FREE AIR AT THIS TIME. 2. MULTIPLE HEPATIC LESIONS MEASURING UP TO 4.4 CM IN BOTH LIVER LOBES. THESE ARE ATYPICAL FOR MASSES VESSELS COURSE THROUGH THE LESIONS. THE ETIOLOGY IS UNCERTAIN AT THIS TIME; HEPATIC INFARCTS ARE A POSSIBILITY. SHORT INTERVAL FOLLOW-UP RECOMMENDED. 3. SOME UROTHELIAL ENHANCEMENT OF THE RIGHT RENAL COLLECTING SYSTEM AND URETER. NONSPECIFIC INFLAMMAT ION IS SUGGESTED. CORRELATE TO EXCLUDE ASCENDING UTI. 4. LEFT ADRENAL NODULE MEASURING 2.2 CM. THIS SHOULD ALSO BE REASSESSED AT FOLLOW-UP TO DETERMINE STA BILITY AND EXCLUDE METASTATIC DISEASE. 5. MODERATE-SIZED HIATAL HERNIA. GASTRIC FOLD THICKENING COULD REPRESENT GASTRITIS. Critical findings called to Chandrakant Tineo in the ER at 4:10 PM.
[2017-11-10] MEDS ORDERED: SODIUM CHLORIDE 0.9% 1,000 ML IV ONE (16:28)
[2017-11-10 16:34] LABS: Creatine Kinase MB 3.6 ng/mL (0.0-2.4); Troponin I 0.097 ng/mL (0.000-0.034)
[2017-11-10 18:01] VITALS: BP 178/76; PULSE 64; RESP 20
== END 2017-11-10 18:10 | disposition short-term general hospital (02) ==
LOC: EC 13:01
DX: K55.069 Acute infarction of intestine, part and extent unspecified (principal); K55.9 Vascular disorder of intestine, unspecified; I10 Essential (primary) hypertension; K76.3 Infarction of liver; K85.90 Acute pancreatitis without necrosis or infection, unspecified; E11.9 Type 2 diabetes mellitus without complications; Z87.891 Personal history of nicotine dependence; Z79.84 Long term (current) use of oral hypoglycemic drugs; Z79.899 Other long term (current) drug therapy; Z80.0 Family history of malignant neoplasm of digestive organs
CPT/HCPCS: 36415; 93005; 80053; 82150; 82550; 82553; 83605; 83690; 84484; 85025; 85610; 85730; 81003; 87086; 74177; 99285; 96374; 96375 ×2; 96376; 96361 ×2; J2270; J0360; Q9967; J2405; 87077; 87186